=== PATIENT | male | born 1955 | race Caucasian/White ===

== ENCOUNTER 2020-08-12 11:43 | Outpatient (REF) | payer MEDICARE, SELFPAY ==
[2020-08-12 13:34] LABS: Alanine Aminotransferase 24 U/L (0-40); Albumin Level 4.3 g/dL (3.5-5.0); Alkaline Phosphatase 140 U/L (39-117); Anion Gap 17 (12-20); Aspartate Amino Transferase 21 U/L (5-37); Bilirubin Total 0.7 mg/dL (0.0-1.0); Blood Urea Nitrogen 18 mg/dL (9-16); Carbon Dioxide 19 mmol/L (22-29); Chloride 103 mmol/L (96-108); Estimated Glomerular Filt Rate > 60; Glucose Random 340 mg/dL (60-115); Potassium 4.8 mmol/l (3.3-5.1); Sodium 134 mmol/L (135-145); Total Protein 6.6 g/dL (6.5-8.0)
== END 2020-08-12 11:44 | disposition home or self-care (01) ==
LOC: HO.MANLR 11:43
PROVIDERS: PCP Physician Assistant; Visit Provider Physician Assistant
DX: I10 Essential (primary) hypertension (principal)
CPT/HCPCS: 80053

== ENCOUNTER 2020-12-26 11:01 | Outpatient (REF) | payer MEDICARE, SELFPAY ==
[2020-12-26 13:04] LABS: Estimated Average Glucose 189 mg/dL; Hemoglobin A1c % 8.2 %
[2020-12-26 13:54] LABS: Alanine Aminotransferase 34 U/L (0-40); Albumin Level 4.2 g/dL (3.5-5.0); Alkaline Phosphatase 135 U/L (39-117); Anion Gap 13 (12-20); Aspartate Amino Transferase 26 U/L (5-37); Bilirubin Total 0.7 mg/dL (0.0-1.0); Blood Urea Nitrogen 17 mg/dL (9-16); Calcium 9.2 mg/dL (8.4-10.2); Carbon Dioxide 24 mmol/L (22-29); Chloride 106 mmol/L (96-108); Estimated Glomerular Filt Rate > 60; Glucose Random 195 mg/dL (60-115); Potassium 4.6 mmol/L (3.3-5.1); Sodium 138 mmol/L (135-145); Total Protein 6.7 g/dL (6.5-8.0)
== END 2020-12-26 11:02 | disposition home or self-care (01) ==
LOC: HO.MANLR 11:01
PROVIDERS: PCP Internal Medicine; Visit Provider Internal Medicine
DX: I10 Essential (primary) hypertension (principal)
CPT/HCPCS: 36415; 80053; 83036

== ENCOUNTER 2021-02-03 09:29 | Outpatient (REF) | payer MEDICARE, SELFPAY ==
[2021-02-03 11:41] LABS: Estimated Average Glucose 186 mg/dL; Hemoglobin A1c % 8.1 %
[2021-02-03 11:55] LABS: Alanine Aminotransferase 25 U/L (0-40); Albumin Level 4.1 g/dL (3.5-5.0); Alkaline Phosphatase 125 U/L (39-117); Anion Gap 11 (12-20); Aspartate Amino Transferase 20 U/L (5-37); Bilirubin Total 0.5 mg/dL (0.0-1.0); Blood Urea Nitrogen 17 mg/dL (9-16); Carbon Dioxide 25 mmol/L (22-29); Chloride 107 mmol/L (96-108); Estimated Glomerular Filt Rate > 60; Glucose Fasting 185 mg/dL (60-99); Potassium 4.5 mmol/L (3.3-5.1); Sodium 138 mmol/L (135-145); Total Protein 6.6 g/dL (6.5-8.0)
== END 2021-02-03 09:30 | disposition home or self-care (01) ==
LOC: HO.MANLR 09:29
PROVIDERS: PCP Internal Medicine; Visit Provider Physician Assistant
DX: E10.9 Type 1 diabetes mellitus without complications (principal); I10 Essential (primary) hypertension
CPT/HCPCS: 36415; 80053; 83036

== ENCOUNTER 2021-05-06 08:47 | Outpatient (REF) | payer MEDICARE, SELFPAY ==
[2021-05-06 11:14] LABS: Estimated Average Glucose 180 mg/dL; Hemoglobin A1c % 7.9 %
[2021-05-06 11:29] LABS: Alanine Aminotransferase 25 U/L (0-40); Alkaline Phosphatase 123 U/L (39-117); Anion Gap 15 (12-20); Aspartate Amino Transferase 22 U/L (5-37); Blood Urea Nitrogen 20 mg/dL (9-16); Calcium 9.5 mg/dL (8.4-10.2); Carbon Dioxide 20 mmol/L (22-29); Chloride 108 mmol/L (96-108); Cholesterol 174 mg/dL; Estimated Glomerular Filt Rate > 60; Glucose Fasting 243 mg/dL (60-99); HDL Cholesterol 68 mg/dL; LDL Cholesterol Calculated 97 mg/dl; Potassium 4.5 mmol/L (3.3-5.1); Sodium 138 mmol/L (135-145); Total Protein 6.4 g/dL (6.5-8.0); Triglycerides 49 mg/dL
[2021-05-06 11:32] LABS: Creatinine Urine 138.34 mg/dL; Microalbum/Creatinine Ratio Ur 14.4 ug/mg cr
== END 2021-05-06 08:48 | disposition home or self-care (01) ==
LOC: HO.MANLDS 08:47
PROVIDERS: PCP Internal Medicine; Visit Provider Physician Assistant
DX: E11.9 Type 2 diabetes mellitus without complications (principal)
CPT/HCPCS: 36415; 80053; 80061; 82043; 83036

== ENCOUNTER 2021-12-01 11:51 | Outpatient (REF) | payer MEDICARE, SELFPAY ==
[2021-12-01 13:44] LABS: Estimated Average Glucose 206 mg/dL; Hemoglobin A1c % 8.8 %
== END 2021-12-01 11:52 | disposition home or self-care (01) ==
LOC: HO.MANLDS 11:51
PROVIDERS: PCP Physician Assistant; Visit Provider Physician Assistant
DX: Z00.00 Encounter for general adult medical examination without abnormal findings (principal)
CPT/HCPCS: 36415; 83036

== ENCOUNTER 2022-03-17 12:25 | Outpatient (REF) | payer MEDICARE, SELFPAY ==
[2022-03-18 07:47] LABS: Estimated Average Glucose 197 mg/dL; Hemoglobin A1c % 8.5 %
== END 2022-03-17 12:26 | disposition home or self-care (01) ==
LOC: HO.MANLDS 12:25
PROVIDERS: PCP Internal Medicine; Visit Provider Physician Assistant
DX: Z00.00 Encounter for general adult medical examination without abnormal findings (principal)
CPT/HCPCS: 36415; 83036

== ENCOUNTER 2022-05-17 08:24 | Outpatient (REF) | payer MEDICARE, SELFPAY ==
[2022-05-17 11:35] LABS: Cholesterol 173 mg/dL; HDL Cholesterol 67 mg/dL; LDL Cholesterol Calculated 96 mg/dl; Triglycerides 52 mg/dL
[2022-05-17 11:49] LABS: Creatinine Urine 214.77 mg/dL
== END 2022-05-17 08:25 | disposition home or self-care (01) ==
LOC: HO.MANLDS 08:24
PROVIDERS: Visit Provider Physician Assistant
DX: E11.9 Type 2 diabetes mellitus without complications (principal)
CPT/HCPCS: 36415; 80061; 82043

== ENCOUNTER 2022-10-01 08:39 | Outpatient (REF) | payer MEDICARE, SELFPAY ==
[2022-10-01 12:40] LABS: Alanine Aminotransferase 24 U/L (0-40); Alkaline Phosphatase 131 U/L (39-117); Aspartate Amino Transferase 21 U/L (5-37); Bilirubin Total 0.8 mg/dL (0.0-1.0); Blood Urea Nitrogen 14 mg/dL (9-16); Calcium 9.2 mg/dL (8.4-10.2); Cholesterol 172 mg/dL; Estimated Glomerular Filt Rate > 60; Glucose Random 231 mg/dL (60-115); HDL Cholesterol 75 mg/dL; LDL Cholesterol Calculated 90 mg/dl; Total Protein 6.2 g/dL (6.5-8.0); Triglycerides 37 mg/dL
[2022-10-01 12:49] LABS: Estimated Average Glucose 197 mg/dL; Hemoglobin A1c % 8.5 %
[2022-10-01 13:37] LABS: Anion Gap 14 (12-20); Carbon Dioxide 25 mmol/L (22-29); Chloride 106 mmol/L (96-108); Potassium 4.6 mmol/L (3.3-5.1); Sodium 140 mmol/L (135-145)
== END 2022-10-01 08:40 | disposition home or self-care (01) ==
LOC: HO.MANLDS 08:39
PROVIDERS: Visit Provider Internal Medicine
DX: E10.9 Type 1 diabetes mellitus without complications (principal)
CPT/HCPCS: 36415; 80053; 80061; 83036

== ENCOUNTER 2023-02-01 11:51 | Outpatient (REF) | payer MEDICARE, SELFPAY ==
[2023-02-01 13:10] LABS: MANUAL DIFF FLAG NO
[2023-02-01 13:33] LABS: Basophils Percent Auto 0.4 % (0-2); Eosinophils Absolute Auto 0.1 X10*3/uL (0.0-0.4); Eosinophils Percent Auto 1.1 % (0-4); Hemoglobin 14.2 g/dl (14.0-18.0); Imm Gran Abs Auto 0.03 X10*3/uL (0.00-0.03); Imm Gran Pct Auto 0.3 % (0.0-0.4); Lymphocytes Absolute Auto 1.5 X10*3/uL (1.2-4.9); Lymphocytes Percent Auto 14.7 % (20-40); Mean Corpuscular HGB Conc 33.8 g/dl (31.0-36.0); Mean Corpuscular Hemoglobin 29.2 pg (27.0-33.0); Mean Corpuscular Volume 86.2 fL (80.0-98.0); Mean Platelet Volume 11.2 fL (9.4-12.4); Monocytes Absolute Auto 0.9 X10*3/uL (0.1-1.2); Monocytes Percent Auto 8.4 % (2-11); Neutrophils Absolute Auto 7.9 x10*3/uL (2.0-8.3); Neutrophils Percent Auto 75.1 % (45-73); Platelet Count 224 X10*3/uL (160-400); Red Blood Count 4.87 X10*6/uL (4.60-5.80); Red Cell Distribution Width 12.9 % (11.0-16.0); White Blood Count 10.5 X10*3/uL (4.8-10.8)
[2023-02-01 13:50] LABS: Estimated Average Glucose 186 mg/dL; Hemoglobin A1c % 8.1 %
[2023-02-01 14:36] LABS: Prostate Specific Antigen 5.43 ng/mL (<0.05-4.0)
[2023-02-01 14:45] LABS: Alanine Aminotransferase 20 U/L (0-40); Alkaline Phosphatase 142 U/L (39-117); Anion Gap 14 (12-20); Aspartate Amino Transferase 20 U/L (5-37); Bilirubin Total 0.8 mg/dL (0.0-1.0); Blood Urea Nitrogen 19 mg/dL (9-16); Calcium 9.3 mg/dL (8.4-10.2); Carbon Dioxide 22 mmol/L (22-29); Chloride 104 mmol/L (96-108); Cholesterol 184 mg/dL; Estimated Glomerular Filt Rate > 60; Glucose Random 356 mg/dL (60-115); HDL Cholesterol 75 mg/dL; LDL Cholesterol Calculated 98 mg/dl; Potassium 4.7 mmol/L (3.3-5.1); Sodium 135 mmol/L (135-145); Total Protein 6.4 g/dL (6.5-8.0); Triglycerides 56 mg/dL
== END 2023-02-01 11:52 | disposition home or self-care (01) ==
LOC: HO.MANLDS 11:51
PROVIDERS: Visit Provider Physician Assistant
DX: Z00.00 Encounter for general adult medical examination without abnormal findings (principal); Z12.5 Encounter for screening for malignant neoplasm of prostate; E10.9 Type 1 diabetes mellitus without complications; I10 Essential (primary) hypertension
CPT/HCPCS: 36415; 80053; 80061; 83036; 84153; 85025

== ENCOUNTER 2023-05-17 10:03 | Outpatient (REF) | payer MEDICARE, SELFPAY ==
[2023-05-17 14:19] LABS: Estimated Average Glucose 189 mg/dL; Hemoglobin A1c % 8.2 %
[2023-05-17 14:52] LABS: Alanine Aminotransferase 21 U/L (0-40); Albumin Level 3.9 g/dL (3.5-5.0); Alkaline Phosphatase 109 U/L (39-117); Anion Gap 12 (12-20); Aspartate Amino Transferase 22 U/L (5-37); Bilirubin Total 0.7 mg/dL (0.0-1.0); Blood Urea Nitrogen 14 mg/dL (9-16); Calcium 9.4 mg/dL (8.4-10.2); Carbon Dioxide 24 mmol/L (22-29); Chloride 108 mmol/L (96-108); Cholesterol 175 mg/dL; Estimated Glomerular Filt Rate > 60; Glucose Random 215 mg/dL (60-115); HDL Cholesterol 71 mg/dL; LDL Cholesterol Calculated 93 mg/dl; Potassium 4.8 mmol/L (3.3-5.1); Sodium 139 mmol/L (135-145); Total Protein 6.5 g/dL (6.5-8.0); Triglycerides 57 mg/dL
== END 2023-05-17 10:04 | disposition home or self-care (01) ==
LOC: HO.MANLDS 10:03
PROVIDERS: Visit Provider Internal Medicine
DX: E10.9 Type 1 diabetes mellitus without complications (principal)
CPT/HCPCS: 36415; 80053; 80061; 83036

== ENCOUNTER 2023-08-29 08:46 | Outpatient (REF) | payer MEDICARE, SELFPAY ==
[2023-08-29 13:30] LABS: Estimated Average Glucose 189 mg/dL; Hemoglobin A1c % 8.2 % (<6.0)
[2023-08-29 13:44] LABS: Alanine Aminotransferase 24 U/L (0-40); Albumin Level 3.9 g/dL (3.5-5.0); Alkaline Phosphatase 117 U/L (39-117); Anion Gap 15 (12-20); Aspartate Amino Transferase 24 U/L (5-37); Bilirubin Total 0.6 mg/dL (0.0-1.0); Blood Urea Nitrogen 11 mg/dL (9-16); Calcium 9.4 mg/dL (8.4-10.2); Carbon Dioxide 25 mmol/L (22-29); Chloride 106 mmol/L (96-108); Cholesterol 181 mg/dL (<200); Estimated Glomerular Filt Rate > 60; Glucose Random 131 mg/dL (60-115); HDL Cholesterol 76 mg/dL (>40); LDL Cholesterol Calculated 94 mg/dL (<100); Potassium 4.5 mmol/L (3.3-5.1); Sodium 141 mmol/L (135-145); Total Protein 6.6 g/dL (6.5-8.0); Triglycerides 57 mg/dL (<150)
== END 2023-08-29 08:47 | disposition home or self-care (01) ==
LOC: HO.MANLDS 08:46
PROVIDERS: Visit Provider Internal Medicine
DX: E10.9 Type 1 diabetes mellitus without complications (principal)
CPT/HCPCS: 36415; 80053; 80061; 83036

== ENCOUNTER 2023-11-23 09:46 | Outpatient (REF) | payer MEDICARE, SELFPAY ==
[2023-11-23 13:00] LABS: Estimated Average Glucose 183 mg/dL
== END 2023-11-23 09:47 | disposition home or self-care (01) ==
LOC: HO.MANLDS 09:46
PROVIDERS: Visit Provider Internal Medicine
DX: E10.9 Type 1 diabetes mellitus without complications (principal)
CPT/HCPCS: 36415; 83036

== ENCOUNTER 2025-02-04 09:40 | Outpatient (REF) | payer MEDICARE, SELFPAY ==
--- OUTSIDE RECORDS SUMMARY | 2025-02-04 11:03 | XMS_ITS | Continuity of Care Document ---
Author Organization [facility] [address] [place] [address] Phone [phone] Care Team Providers Care Occ Med Physician Name Role Phone ALISTAIR Corona Care Team Information Linux Devops Engineer [phone] Sebastian Dunbar M.D. Care Team Information Linux Devops Engineer [phone] Problems Active Problems Provider Date Type 1 diabetes mellitus Aditya Shore M.D. Onset: 05/11/2023 Social History Type Date Description Comments Sex Unknown Tobacco Use Start: Unknown Never Smoked Cigarettes Smoking Status Reviewed: 05/11/23 Never Smoked Cigaret chantell ETOH Use Occasionally consumes alcoho l Allergies and adverse reactions Description No Known Drug Allergies Medications Active Medications SIG Qnty Indications Ordering Provider Date [id number]/ML Solution Inject 30 Units Under The Skin Daily And 10 Units Per Meal as Needed Use Up To 1 ALISTAIR Corona Atorvastatin Htytyag43cy Tablets Take 1 Tablet By Mouth Every Day ALISTAIR Corona [id number] Tablets Take 1 Tablet By Mouth Every Day ALISTAIR Corona Vital Signs Date Vital Result Comment 11/28/2024 2:42pm BP Systolic 120 mmHg BP Diastolic 80 mmHg Heart Rate 72 /min Height 71 inches 5'11 Weight 239.00 lb BMI (Body Mass Index) 33.3 kg/m2 Results Test Acquired Date Facility Test Result H/L Range Note Glucose Fingerstick 11/28/2024 Inhouse Glucose Fingerstick 186 Hemoglobin A1c 11/28/2024 Inhouse Hemoglobin A1c 7.5% Hemoglobin A1c 08/28/2024 Inhouse Hemoglobin A1c 7.6% Glucose Fingerstick 08/28/2024 Inhouse Glucose Fingerstick 147 Hemoglobin A1c 05/16/2024 Inhouse Hemoglobin A1c 7.5% Glucose Fingerstick 05/16/2024 Inhouse Glucose Fingerstick 128 Hemoglobin A1c 02/09/2024 Inhouse Hemoglobin A1c 7.1% Glucose Fingerstick 02/09/2024 Inhouse Glucose Fingerstick 238 Hemoglobin A1c 11/07/2023 Inhouse Hemoglobin A1c 8.1% Glucose Fingerstick 11/07/2023 Inhouse Glucose Fingerstick 147 Glucose 10/07/2023 [facility] Glucose 203 mg/dL High (70-99) Gad65 Autoantibodies 10/07/2023 [facility] Gad65 Autoantibodies <5.0 1 C-Peptide 10/07/2023 [facility] C-Peptide <0.1 Low 2 Glucose 08/09/2023 [facility] Glucose <pending> C-Peptide 08/09/2023 [facility] C-Peptide <pending> Gad65 Autoantibodies 08/09/2023 [facility] Gad65 Autoantibodies <pending> Hemoglobin A1c 08/03/2023 Inhouse Hemoglobin A1c 9.4% Glucose Fingerstick 08/03/2023 Inhouse Glucose Fingerstick 333 Hemoglobin A1c 05/11/2023 Inhouse Hemoglobin A1c 8.7% Glucose Fingerstick 05/11/2023 Inhouse Glucose Fingerstick 193 1 Reference range: 0.0 to 5.0 Unit: U/mL Test performed at [address] [address] 2 Reference range: 1.1 to 4.4 Unit: ng/mL (NOTE) C-Peptide reference interval is for fasting patients. Test performed by [facility], [address] [place] [id number] Procedures Date Code Description Status 11/28/2024 12814 Glucose Monitoring Interpeta tion And Report Completed 08/28/2024 86391 Glucose Monitoring Interpeta tion And Report Completed 05/16/2024 25287 Glucose Monitoring Interpeta tion And Report Completed 02/09/2024 96777 Glucose Monitoring Interpeta tion And Report Completed 11/07/2023 71973 Glucose Monitoring Interpeta tion And Report Completed Medical Devices Description No Information Available Encounters Type Date Location Provider Dx Diagnosis Office Visit 11/28/2024 2:45p Main Office Aditya Shore M.D. E10.9 Type 1 diabetes mellitus without complications Assessments Date Code Description Provider 11/28/2024 E10.9 Type 1 diabetes mellitus without complications Aditya Shore M.D. Plan of Treatment Future Appointment(s):* 04/09/2025 2:30 pm - Aditya Shore M.D. 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
--- OUTSIDE RECORDS SUMMARY | 2025-02-04 11:03 | XMS_ITS | Continuity of Care Document ---
Author Organization [facility], [facility] Address [address] [place] [address] [place] [address] Assessment No assessment recorded. Plan of Treatment Reminders Order Date Submit Date Provider Last Modified By Organization Details Last Modified Time Details Appointments FOLLOW UP 2024 09:15A ALISTAIR GARG Not available Not available Not available FOLLOW UP 2024 09:30A ALISTAIR GARG Not available Not available Not available Lab PSA, serum or plasma 2024 025 [facility], [address] [place] [address], [id number], 02/04/2025 09:25:00 hemoglobi n A1c, QN, blood 2024 025 [facility], [address] [place] [address], [id number], 02/04/2025 09:25:00 CMP, serum or plasma 2024 025 [facility], [address] [place] [address], [id number], 02/04/2025 09:25:00 CBC w/ auto diff 2024 025 [facility], [address] [place] [address], [id number], 02/04/2025 09:25:00 lipid panel, blood 2024 025 [facility], [address] [place] [address], [place], [id number], 02/04/2025 09:25:00 Referral None recorded. Procedures None recorded. Surgeries None recorded. Imaging None recorded. Medication Orders None recorded. Patient TargetsNo targets recorded. Patient InstructionsNo instructions recorded. Reason for Referral None Reported. Problems Name Problem SNOMED Code Status Onset Date Resolution Date Notes Provider Name and Address Organization Details Recorded Time COVID-19 423083750 Active 2020 1 Not Available [facility] 3 05:15:08 Nasal congestio n 62259838 Active 2021 Not Available [facility] 3 05:15:08 Overweigh t 590176042 Active 2022 ALISTAIR CHRISTINE [address] [place], [address], [facility] 3 13:47:10 Essential hypertens ion 98326252 Active 2022 ALISTAIR CHRISTINE [address] [place], [address], [facility] 3 13:48:01 Acute bronchiti s 47050503 Active 2023 ALISTAIR CHRISTINE [address] [place], [address], [facility] 4 11:16:36 Hyperchol esterolem ia 85505687 Active 2017 Not Available [facility] 3 05:15:08 Type 1 diabetes mellitus 53365188 Active 2017 Not Available [facility] 3 05:15:08 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 Medical Equipment None Reported. Allergies No known drug allergies Medications Name Sig Start Date Stop Date Status Note LastModified by Organization Details LastModified Time Prescriptio n - Prior Authorizati on Request active Not Available Not Available N ot Available amoxicillin 500 mg capsule Take 1 capsule 3 times a day by oral route for 7 days. 12/21 completed Not Available Not Available Not Available atorvastati n 10 mg tablet TAKE 1 TABLET BY MOUTH EVERY DAY active Not Available Not Available No t Available azithromyci n 250 mg tablet TAKE 2 TABLETS (500 MG) BY ORAL ROUTE ONCE DAILY FOR 1 DAY THEN 1 TABLET (250 MG) BY ORAL ROUTE ONCE DAILY FOR 4 DAYS 02/04 completed Not Available Not Available Not Available benzonatate 200 mg capsule Take 1 capsule 3 times a day by oral route as needed for 14 days. 02/04 completed Not Available Not Available Not Available sulfamethox azole 800 mg-trimetho prim 160 mg tablet TAKE 1 TABLET BY MOUTH TWICE DAILY 05/17 completed Not Available Not Available Not Available sildenafil 100 mg tablet TAKE 1/2 TABLET BY MOUTH NEEDED ON EMPTY STOMACH 30 MINUTES PRIOR TO INTERCOUR SE MAY INCREASE TO FULL TABLET active Not Available Not Available No t Available tamsulosin 0.4 mg capsule take 1 capsule by mouth once daily 08/12 completed Not Available Not Available Not Available Humalog U-100 Insulin 100 unit/mL subcutaneou s solution inject 30 units subcutane ously once daily AND 10 UNITS PER MEAL NEEDED, USE UP TO 135 UNITS PER DAY 12/21 completed Not Available Not Available Not Available lisinopril 10 mg tablet take 1 tablet by mouth once daily active Not Available Not Available No t Available bisacodyl 5 mg tablet,lacey yed release TAKE 4 TABLETS BY MOUTH ONCE DIRECTED 05/17 completed Not Available Not Available Not Available Novolog U-100 Insulin aspart 100 unit/mL subcutaneou s solution MAX 135 units per day- 30 units daily w/ additiona l 10 units minimum per meal AND according to sliding scale. active Not Available Not Available No t Available doxycycline hyclate 100 mg tablet TK 1 T PO BID FOR 7 DAYS 01/02 completed Not Available Not Available Not Available Novolog FlexPen U-100 Insulin aspart 100 unit/mL (3 mL) subcutaneou s INJECT 30 UNITS SUBCUTANE OUSLY ONCE DAILY AND 10 UNITS PER MEAL NEEDED, USE UP TO 135 UNITS PER DAY 06/19 completed Not Available Not Available Not Available BD Insulin Syringe Micro-Fine 1 mL 28 gauge x 1/2 USE DIRECTED active Not Available Not Available No t Available GaviLyte-G 236 gram-22.74 gram-6.74 gram-5.86 gram oral solution MIX AND DRINK DIRECTED 05/17 completed Not Available Not Available Not Available ID NOW COVID-19 Test Kit TEST DIRECTED 01/02 completed Not Available Not Available Not Available Afluria Qd (36 mos up)(PF)60 mcg (15 mcg x4)/0.5 mL IM syringe ADM 0.5ML IM UTD 01/02 completed Not Available Not Available Not Available Vitals Date Recorded Body height Body mass index (BMI) Body weight Heart rate Oxygen saturation Oxygen saturation in Arterial blood by Pulse oximetry Systolic blood pressure Diastolic blood pressure Provider Name and Address Organization Details Last Updated DateTime 5 179.07 cm 32.2 kg/m2 852193. 26 g 76 /min 99 % 99 % 120 mm[Hg] 80 mm[Hg] Eleanor Alvarado [facility] 5 09:18:26 Social History Question Answer Notes LastModified by Organizat ion Details LastModified Time Tobacco Smoking Status Never Smoker Not Available [facility] 09/02/2020 03:36:24 What Was The Date Of Your Most Recent Tobacco Screening? 02/04/2025 [email or web address] Information not available 02/04/2025 Do You Or Have You Ever Used Any Other Forms Of Tobacco Or Nicotine? No [email or web address] Information not available 10/15/2024 Sex: Unknown Functional Status None recorded. Mental Status None recorded. Family History Nothing Reported. Medical History No medical history recorded. Immunizations Vaccine Type Date Status Note Provider Nam e and Address Organization Details Recorded Time COVID-19, mRNA, LNP-S, PF, 100 mcg/0.5mL dose or 50 mcg/0.25mL dose 1 completed Not Available [facility] 09/07/2023 05:15:08 Influenza, split virus, quadrivalent, preservative 8 completed Not Available [facility] 09/07/2023 05:15:08 Tdap 8 completed Not Available [facility] 09/07/2023 05:15:08 Influenza, split virus, quadrivalent, preservative 9 completed Not Available [facility] 09/07/2023 05:15:08 Influenza, split virus, quadrivalent, preservative 0 completed Not Available [facility] 09/07/2023 05:15:08 COVID-19, mRNA, LNP-S, PF, 100 mcg/0.5mL dose or 50 mcg/0.25mL dose 1 completed Not Available [facility] 09/07/2023 05:15:08 Past Encounters Encounter ID Performer Location Encounter Start Date Encounter Closed Date Diagnosis/Indication Diagnosis SNOMED-CT Code Diagnosis ICD10 Code Diagnosis Note [id number] ALISTAIR CHRISTINE [facility] [address] [facility],[place] [address] 02/04/2025 09:12:45 02/04/2025 09:39:41 Essential hypertension 44907847 I10 stable, excellent control Hypercholesterolemia 136 43035 E78.2 stable Type 1 delmy betes mellitus 18766843 E10.9 needs blood work Screening for malignant neoplasm of prostate 446410018 Z12.5 needs f/u recheck Depression screening 171 082995 Z13.31 negative Health Concerns Section Related Observation LastModified by Organization Detai ls LastModified Time None Recorded Concern Status LastModified by Organization Details LastModified Time None Recorded Payers Encounter Date Sequence Insurance Name Policy Number Policy Fan Covered Member ID Fan Member ID Guarantor Name 02/04/2025 1 [place] [employer] Bj Banks [id number] Bj Banks 02/04/2025 2 [place] [id number] Bj Banks [id number] Bj Banks Notes Date Note Type Note Provider Name a nd Address Organization Details Recorded Time 02/04/2025 text/html medication check /3 mos f/u HTN: today in the office the patient BP is 120/80 L arm sitting the patient is doing well on the BP medication with no side effects and no adjustment of their medications needed today at the appointment well-controlled on medication denies chest pain, sob, ankle swelling, orthopnea, palpitations T1DM: patient still using pump, working well for himnumber have been around normal for him 140-160's usuallyhave adjusted his insulin dosing and working on being more cognizant of his diet screening prostate: has been stable, no symptoms depression screening: The patient denies little pleasure in activities they find enjoyable, feeling depressed, difficulties sleeping, feeling tired or having little energy, change in appetite, feeling guilty, overwhelmed or unmotivated. The patient denies suicidal ideation, thoughts of hurting themselves or others. Their mood is appropriate, they show good judgement and clear understanding of the conversation. They are orientated to time, place and person. They are not expressing any concerning thoughts or actions that would need further investigation and treatment for mental health. ALISTAIR CHRISTINE [address] [facility], [place], [address], [facility] 02/04/2025 09:37:34
--- OUTSIDE RECORDS SUMMARY | 2025-02-04 11:04 | XMS_ITS | Data Portability ---
Author Organization [facility], Home Service Address [address] [place] [address] Assessment Encounter Date Assessment Date Assessment LastModified by Organization Details LastModified Time 11/28/2023 11/28/2023 Patient agreed and verbally consents to this audio and video Telehealth appt via a secure platform [email or web address] Not available 11/28/2023 09:40:45 Plan of Treatment Reminders Order Date Submit Date Provider Last Modified By Organization Details Last Modified Time Details Appointments FOLLOW UP 15 2024 09:15A M ALISTAIR CHRISTINE Not available Not available Not available FOLLOW UP 15 2024 09:30A M ALISTAIR CHRISTINE Not available Not available Not available Lab PSA, serum or plasma 2024 025 [facility], [address] [place] [address], [id number], 02/04/2025 09:25:00 hemoglobi n A1c, QN, blood 2024 025 [facility], [address] [place] [address], [id number], 02/04/2025 09:25:00 CMP, serum or plasma 2024 025 [facility], [address] [place] [address], [id number], 02/04/2025 09:25:00 CBC w/ auto diff 2024 025 [facility], [address] [place] [address], [id number], 02/04/2025 09:25:00 lipid panel, blood 2024 025 [facility], [address] [place] [address], [id number], 02/04/2025 09:25:00 CMP, serum or plasma 2023 024 [facility], [place], [address], 10/15/2024 13:54:38 CBC w/ auto diff 2023 024 [facility], [place], [address], 10/15/2024 13:54:38 lipid panel, blood 2023 024 [facility], [place], [address], 10/15/2024 13:54:38 hemoglobi n A1c, QN, blood 2023 024 [facility], [place], [address], 10/15/2024 13:54:39 CMP, serum or plasma 2023 024 [facility], [address] [place] [address], [address], 02/27/2024 14:23:13 hemoglobi n A1c, QN, blood 2023 024 [facility], [address] [place] [address], [id number], 02/27/2024 14:23:13 CBC w/ auto diff 2023 024 [facility], [address] [place] [address], [id number], 02/27/2024 14:23:13 lipid panel, blood 2023 024 [facility], [address] [place] [address], [address], 02/27/2024 14:23:14 Referral None recorded. Procedures None recorded. Surgeries None recorded. Imaging None recorded. Medication Orders Novolog U-100 Insulin aspart 100 unit/mL subcutane ous solution 2023 024 [id number], [address] ([employer]) [facility], [place], [address], 02/27/2024 14:25:32 lisinopri l 10 mg tablet 2023 024 [facility], [address] ([employer]) [place], [address], 02/27/2024 14:41:32 atorvasta tin 10 mg tablet 2023 024 [facility], [address] ([employer]) [facility], [place], [address], 02/27/2024 14:41:34 Novolog U-100 Insulin aspart 100 unit/mL subcutane ous solution 2023 024 [facility] Not available 11/28/2023 09:49:57 Patient TargetsNo targets recorded. Patient Instructions Encounter Date Encounter Id Patient Instructions Last Modified By Organization Details Last Modified Time 10/10/2023 [id number] starting a weigh t loss plan: care instructions [email or web address] Not available 10/10/2023 13:47:29 advance care planning: care instructions [email or web address] Not available 10/10/2023 13:44:02 10/15/2024 [id number] advance care planning: care instructions [email or web address] Not available 10/15/2024 13:54:25 Reason for Referral None Reported. Results Created Date Observation Date Name Description Value Unit Range Abnormal Flag Note LastModifiedBy Organization Detail LastModifiedTime Result Notes None recorded. Problems Name Problem SNOMED Code Status Onset Date Resolution Date Notes Provider Name and Address Organization Details Recorded Time COVID-19 795731377 Active 2020 1 Not Available [facility] 3 05:15:08 Nasal congestio n 60879556 Active 2021 Not Available [facility] 3 05:15:08 Overweigh t 714602023 Active 2022 ALISTAIR CHRISTINE [address] [place], [address], [facility] 3 13:47:10 Essential hypertens ion 04170828 Active 2022 ALISTAIR CHRISTINE [address] [place], [address], [facility] 3 13:48:01 Acute bronchiti s 61042536 Active 2023 ALISTAIR CHRISTINE [address] [place] [address], [address], [facility] 4 11:16:36 Hyperchol esterolem ia 57578064 Active 2017 Not Available [facility] 3 05:15:08 Type 1 diabetes mellitus 35313687 Active 2017 Not Available Replaced by [facility] 3 05:15:08 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 Medical Equipment None Reported. Allergies No known drug allergies Medications Name Sig Start Date Stop Date Status Note LastModified by Organization Details LastModified Time Prescriptio n - Prior Authorizati on Request active Not Available Not Available N ot Available amoxicillin 500 mg capsule Take 1 capsule 3 times a day by oral route for 7 days. 02/21 /2020 completed Not Available Not Available Not Available [...] Available Not Available Not Available Afluria Qd 2019- (36 mos up)(PF)60 mcg (15 mcg x4)/0.5 mL IM syringe ADM 0.5ML IM UTD 01/02 completed Not Available Not Available Not Available Vitals Date Recorded Body height Body mass index (BMI) Body weight Heart rate Oxygen saturation Oxygen saturation in Arterial blood by Pulse oximetry Systolic blood pressure Diastolic blood pressure Provider Name and Address Organization Details Last Updated DateTime 3 179.07 cm 32.3 kg/m2 362594. 06 g 71 /min 99 % 99 % 135 mm[Hg] 75 mm[Hg] Frida Huff [facility] 3 13:36:43 Date Recorded Body height Body mass index (BMI) Body weight Heart rate Respiratory rate Oxygen saturation Oxygen saturation in Arterial blood by Pulse oximetry Systolic blood pressure Diastolic blood pressure Provider Name and Address Organization Details Last Updated DateTime 4 179.07 cm 33.2 kg/m2 433668. 21 g 74 /min 18 /min 99 % 99 % 126 mm[Hg] 70 mm[Hg] Dalton Weinberg [facility] 4 14:14:53 Date Recorded Body height Body mass index (BMI) Body weight Heart rate Oxygen saturation Oxygen saturation in Arterial blood by Pulse oximetry Systolic blood pressure Diastolic blood pressure Provider Name and Address Organization Details Last Updated DateTime 4 179.07 cm 32.8 kg/m2 855513. 43 g 72 /min 98 % 98 % 130 mm[Hg] 70 mm[Hg] Thao Brizuela [facility] 4 13:36:50 Date Recorded Body height Body mass index (BMI) Body weight Heart rate Oxygen saturation Oxygen saturation in Arterial blood by Pulse oximetry Systolic blood pressure Diastolic blood pressure Provider Name and Address Organization Details Last Updated DateTime 5 179.07 cm 32.2 kg/m2 154497. 26 g 76 /min 99 % 99 % 120 mm[Hg] 80 mm[Hg] Eleanor Parra [facility] 5 09:18:26 Social History Question Answer Notes LastModified by Organizat ion Details LastModified Time Tobacco Smoking Status Never Smoker Not Available Replaced by [facility] 09/02/2020 03:36:24 What Was The Date Of Your Most Recent Tobacco Screening? 02/04/2025 [email or web address] Information not available 02/04/2025 Do You Or Have You Ever Used Any Other Forms Of Tobacco Or Nicotine? No [email or web address] Information not available 10/15/2024 Sex: Unknown Functional Status None recorded. Mental Status None recorded. Family History Nothing Reported. Medical History No medical history recorded. Immunizations Vaccine Type Date Status Note Provider Nam e and Address Organization Details Recorded Time COVID-19, mRNA, LNP-S, PF, 100 mcg/0.5mL dose or 50 mcg/0.25mL dose 1 completed Not Available Replaced by [facility] 09/07/2023 05:15:08 Influenza, split virus, quadrivalent, preservative 8 completed Not Available Replaced by [facility] 09/07/2023 05:15:08 Tdap 8 completed Not Available Replaced by [facility] 09/07/2023 05:15:08 Influenza, split virus, quadrivalent, preservative 9 completed Not Available Replaced by [facility] 09/07/2023 05:15:08 Influenza, split virus, quadrivalent, preservative 0 completed Not Available Replaced by [facility] 09/07/2023 05:15:08 COVID-19, mRNA, LNP-S, PF, 100 mcg/0.5mL dose or 50 mcg/0.25mL dose 1 completed Not Available Replaced by [facility] 09/07/2023 05:15:08 Past Encounters Encounter ID Performer Location Encounter Start Date Encounter Closed Date Diagnosis/Indication Diagnosis SNOMED-CT Code Diagnosis ICD10 Code Diagnosis Note [id number] Radha Myers NP, S [facility] [address] [facility],[place] [address] 03/06/2018 13:59:06 03/06/2018 15:45:05 Active or passive immunization 943127474 Z23 Discussed pneumonia vaccine, pt has had HSV Adult heal th examination 163592058 Z00.00 Hypercholesterolemia 136 59114 E78.00 Nocturia d ue to benign prostatic hypertrophy 1989154467 101 N40.1 Bilateral hearing loss 91461057 H91.93 Type 1 delmy betes mellitus 94511566 E10.9 long discussion re: risks coronary disease to reduce night time snacking, try to eat at work during day walk daily, even for a short period of time prefers paper lab slip, provided to include chol, microalbum in Essential hypertension 49175900 I10 continue lisinopril [id number] Radha Myers NP, S [facility] [address] [facility], [place] [facility] [place] [address] 06/13/2018 11:07:21 06/16/2018 09:29:46 Type 1 diabetes mellitus 37123576 E10.9 Hypercholesterolemia 136 10620 E78.00 reviewed labs Hypertensive disorder 38 193787 I10 stable [id number] Radha Myers NP, [facility] [address] [facility], [employer] [place] [address] 11/06/2018 14:14:15 11/06/2018 16:12:04 Hypercholesterolemia 15093605 E78.00 reviewed labs Hypertensive disorder 38 356817 I10 stable Type 1 delmy betes mellitus 88374169 E10.9 up to date with Dr. Yanez en Dyspnea on exertion 6084 5006 R06.09 Snoring 98247518 R06.83 [id number] Radha Myers NP, [facility] [address] [facility], [employer] [place] [address] 02/19/2019 13:20:06 02/19/2019 14:44:39 Hypertensive disorder 81664918 I10 stable Type 1 delmy betes mellitus 98622321 E10.9 Hypercholesterolemia 136 22193 E78.00 reviewed labs [id number] Sebastian Dunbar DO [facility] [address] [facility], [place] [address] 05/16/2019 13:38:20 05/16/2019 15:06:04 Hypercholesterolemia 04415515 E78.00 Type 1 delmy betes mellitus 71520564 E10.9 -continue monitoring blood glucose levels -control infections -monitor for signs and symptoms of infection -discussed signs and symptoms of hyperglyce franci and hypoglycem ia -discussed different glucose monitoring devices -discussed insulin pumps -discussed management of type I diabetes -discussed diet and weight management Hypertensive disorder 38 047040 I10 -continue with lisinopril 10mg Dental abscess 838646514 K04.7 -diagnosed with tooth abscess at dentist today via xray -scheduled for root canal next week [id number] Sebastian Dunbar DO [facility] [address] [facility],[place] [address] 09/03/2019 11:15:50 09/03/2019 12:14:20 Type 1 diabetes mellitus 97788572 E10.9 -continue monitoring blood glucose levels -control infections -monitor for signs and symptoms of infection -discussed signs and symptoms of hyperglyce franci and hypoglycem ia -discussed different glucose monitoring devices -discussed insulin pumps -discussed management of type I diabetes -discussed diet and weight management Hypertensive disorder 38 142553 I10 -continue with lisinopril 10mg Hypercholesterolemia 136 93068 E78.00 Hepatitis C screening 41 9064350 Z11.59 [id number] Sebastian Dunbar DO [facility] [address] [facility],[place] [address] 12/21/2019 10:16:50 12/21/2019 11:10:23 Hypertensive disorder 91186772 I10 -continue with lisinopril 10mg Type 1 delmy betes mellitus 58929596 E10.9 -continue monitoring blood glucose levels -control infections -monitor for signs and symptoms of infection -discussed signs and symptoms of hyperglyce franci and hypoglycem ia -discussed different glucose monitoring devices -discussed insulin pumps > now using insulin pump, waiting for insurance company to approve the sensor -discussed management of type I diabetes -discussed diet and weight management [id number] Sebastian Dunbar DO [facility] [address] [facility],[place] [address] 04/16/2020 15:49:10 04/16/2020 16:26:17 Hypertensive disorder 02275317 I10 -continue with lisinopril 10mg Type 1 delmy betes mellitus 33905034 E10.9 will try to get the PRX lab testing continuous glucose monitor with out finger sticks -continue monitoring blood glucose levels -control infections -monitor for signs and symptoms of infection -discussed signs and symptoms of hyperglyce franci and hypoglycem ia -discussed different glucose monitoring devices -discussed insulin pumps > now using insulin pump, waiting for insurance company to approve the sensor -discussed management of type I diabetes -discussed diet and weight management Chronic th oracic back pain 1404121712 61825 M54.6 Cough 71970019 R05 no known allergies nonsmoker [id number] ALISTAIR CHRISTINE [facility] [address] [facility] [address],[place] [address] 08/12/2020 10:37:08 08/12/2020 11:37:29 Hypertensive disorder 28049984 I10 BP fine today will continue to monitor Type 1 delmy betes mellitus 75462389 E10.9 working on getting new pump will keep me informed about what he needs [place] bw [id number] ALISTAIR CHRISTINE [facility] [address] [facility] [address],[place] [address] 10/28/2020 08:38:29 10/28/2020 11:24:04 Hypertensive disorder 77511188 I10 BP good per patient Type 1 delmy betes mellitus 80268030 E10.9 A1c is much better new pump is working much better for him [id number] ALISTAIR CHRISTINE [facility] [address] [facility] [address],[place] [address] 01/02/2021 14:07:49 01/02/2021 15:53:44 Type 1 diabetes mellitus 53129781 E10.9 A1c is better 8.2% new pump is working much better for him Hypertensive disorder 38 337658 I10 BP excellent today, no change or interventi on needed at this time [id number] ALISTAIR CHRISTINE [facility] [address] [facility] [address],[place] [address] 04/10/2021 10:26:46 04/10/2021 14:15:09 Diabetes mellitus 92416506 E11.9 will fu with recheck in a few mo the patient A1c, working with his new pump to regulate Hypercholesterolemia 136 52966 E78.2 stable at recheck will fu in another 6 mo Hypertensive disorder 38 308548 I10 BP excellent today, no change or interventi on needed at this time [id number] ALISTAIR CHRISTINE [facility] [address] [facility] [address],[place] [address] 05/06/2021 08:50:28 05/06/2021 09:19:18 Active or passive immunization 585552484 Z23 discussed with patientfrancesd COVID vaccine and joey keith on the pna vaccine Adult heal th examination 520711481 Z00.00 the patient had lab work recentlydi scussed with patient diet and exercise BP excellent [id number] [facility] [address] [facility] [address],[place] [address] 07/22/2021 08:11:37 07/22/2021 11:55:13 Type 1 diabetes mellitus 72792713 E10.9 will be getting the blood work this week Retinopath y due to diabetes mellitus 9636477 E11.3293 stable 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.1 will fu recheck to confirm diagnosisi f correct with discuss work up Kidney stone 35699889 N2 0.0 multiple stones, left kidney fu with urologyinc rease water intake [id number] ALISTAIR CHRISTINE [facility] [address] [facility],[place] [address] 12/04/2021 08:20:36 12/07/2021 11:00:24 Retinopathy due to diabetes mellitus 5550936 E11.3293 stable Benign pro static hyperplasia 370700208 N40.0 stable Hypercholesterolemia 136 88545 E78.2 stable Hypertensive disorder 38 454247 I10 no changes or symptoms suggestive uncontroll ed HTN Type 1 delmy betes mellitus 67184684 E10.9 A1c is up from last checkpatie nt understand s he needs to really focus on his diet Mild memor y disturbance 829955204 R41.3 related to stress levels [id number] ALISTAIR CHRISTINE [facility] [address] [facility] [address],[place] [address] 03/10/2022 09:19:35 03/10/2022 10:54:47 Cough 04497800 R05.1 will monitor symptoms Nasal congestion 1618288 0 R09.81 will monitor symptoms [id number] ALISTAIR CHRISTINE [facility] [address] [facility] [address] [address] 05/17/2022 08:53:10 05/17/2022 09:31:53 Hypertensive disorder 91720503 I10 no changes or symptoms suggestive uncontroll ed HTN Type 1 delmy betes mellitus 72910407 E10.9 A1c is up from last checkpatie nt understand s he needs to really focus on his diet Advance care planning 71 6044720 Z71.89 updated patient Active or passive immunization 113661119 Z23 patient advised he is due to pneu 22/10 & shingles [id number] ALISTAIR CHRISTINE [facility] [address] [facility] [address],[place] [address] 10/01/2022 10:41:31 10/01/2022 11:35:02 Active or passive immunization 985765186 Z23 patient advised he is due to pneu 22/10 & shingles Adult heal th examination 928806927 Z00.00 the patient had lab work recentlydi scussed with patient diet and exercise BP excellent [id number] ALISTAIR CHRISTINE [facility] [address] [facility] [address] [address] 02/02/2023 10:18:32 02/02/2023 13:50:35 Hypercholesterolemia 61114191 E78.2 stable Type 1 delmy betes mellitus 61905080 E10.9 [facility] againmost likely to 30 U AM and 20 U PM to startalso send back to his endo Retinopath y due to diabetes mellitus 9509545 E11.3293 stable [id number] ALISTAIR CHRISTINE [facility] [address] [facility] [address],[place] [address] 05/17/2023 09:20:21 05/17/2023 12:25:29 Hypercholesterolemia 75164822 E78.2 stable Hypertensive disorder 38 401010 I10 no changes or symptoms suggestive uncontroll ed HTNstable at home Type 1 delmy betes mellitus 72286480 E10.9 waiting on new results after today's appt Benign pro static hyperplasia 433963043 N40.0 stableno major changes [id number] ALISTAIR CHRISTINE [facility] [address] [facility] [address],[place] [address] 08/29/2023 08:52:16 08/29/2023 09:55:36 Benign prostatic hyperplasia 293509363 N40.0 stableno major changes Hypercholesterolemia 136 20391 E78.2 stable Hypertensive disorder 38 815357 I10 stable Type 1 delmy betes mellitus 97125301 E10.9 waiting on new results after today's appt [id number] ALISTAIR CHRISTINE [facility] [address] [facility] [address],[place] [address] 10/10/2023 13:31:38 10/10/2023 13:59:13 Adult health examination 618467593 Z00.00 BP is good todayrecen tly had multiple blood draws, A1c is down a few points Overweight 109759617 E66 .3 stablework on diet [id number] ALISTAIR CHRISTINE [facility] [address] [facility] [address],[place] [address] 11/28/2023 09:31:04 11/28/2023 10:08:51 Benign prostatic hyperplasia 559895445 N40.0 stableno major changes Essential hypertension 79393734 I10 stable per patient Hypercholesterolemia 136 76506 E78.2 stable Type 1 delmy betes mellitus 17551734 E10.9 may need an alternativ e to novolog, was told by insurance that they no longer cover NovoLog Retinopath y due to diabetes mellitus 2672295 E11.3293 stable [id number] ALISTAIR CHRISTINE [facility] [address] [facility] [address],[place] [address] 02/27/2024 14:01:29 02/27/2024 16:29:18 Type 1 diabetes mellitus 58722276 E10.9 A1c was 7.1%will switch pharmacy to [facility] given the amount of issues with [facility] Essential hypertension 73914412 I10 stable per patientexc ellent control today in office Hypercholesterolemia 136 25479 E78.2 stable [id number] ALISTAIR CHRISTINE [facility] [address] [facility] [address],[place] [address] 10/15/2024 13:30:31 10/15/2024 14:21:48 Benign prostatic hyperplasia 848793186 N40.0 stableno major changes Type 1 delmy betes mellitus 05368321 E10.9 A1c was 7.4%pump is working good Essential hypertension 29037332 I10 stable Hypercholesterolemia 136 88762 E78.2 stable Adult heal th examination 637239062 Z00.00 BP is good todayrecen tly had multiple blood draws, A1c is down a few points Depression screening 171 973061 Z13.31 negative [id number] ALISTAIR CHRISTINE [facility] [address] [facility] [address],[place]illy [place] [facility] [place] [place] [address] 02/04/2025 09:12:45 02/04/2025 09:39:41 Essential hypertension 12787382 I10 stable, excellent control Hypercholesterolemia 136 06086 E78.2 stable Type 1 delmy betes mellitus 01180368 E10.9 needs blood work Screening for malignant neoplasm of prostate 872035735 Z12.5 needs f/u recheck Depression screening 171 016929 Z13.31 negative Health Concerns Section Related Observation LastModified by Organization Detai ls LastModified Time None Recorded Concern Status LastModified by Organization Details LastModified Time None Recorded Advance Directives Directive None Recorded Payers Encounter Date Sequence Insurance Name Policy Number Policy Fan Covered Member ID Fan Member ID Guarantor Name 10/10/2023 1 [place] [employer] Bj Banks [id number] Bj Jocelyn 10/10/2023 2 [place] [id number] Bj Stevenson [place] [id number] Bj Cabins 11/28/2023 1 [place] Bj Izquierdoon [id number] Bj [place]ins 11/28/2023 2 [place] [id number] Bj Stevenson Jocelyn [id number] Bj Jocelyn 02/27/2024 1 [place] Bj Banks [id number] Bj Jocelyn 02/27/2024 2 [place] [id number] Bj Banks [id number] Bj Banks 10/15/2024 1 [place] [facility] Bj Banks [id number] Bj Banks 10/15/2024 2 [place] (MEDICARE SUPPLEMENT) [id number] Bj Banks [id number] Bj Banks 02/04/2025 1 [place] [facility] Bj Banks [id number] Bj Banks 02/04/2025 2 [place] [id number] Bj Banks [id number] Bj Banks Notes Date Note Type Note Provider Name a mt Address Organization Details Recorded Time 3 text/html Annual WellnessReported bypatient.Diet and Nutrition:healthy diet; discussed vitamin and supplement use; discussed portion control; discussed maintaining calcium balance; discussed diet improvement Fracture Risk:no history of fractures; no recent explained fracture; no sudden unexplained fractures; no previous musculoskeletal injuries Physical Activity:exercises on a regular basis; recent increase in physical activity; good physical condition; discussed weightbearing activities; discussed exercise habits Additional Lifestyle Factors:no tobacco use; drinks alcohol (mild-moderate) Depression Risk:never feels sad, empty, or tearful; no loss of interest in activities; no significant changes in weight; no sleep disturbances or insomnia; no agitation; no loss of energy; no feelings of worthlessness or guilt; no thoughts of suicide; no history of depression; no history of mood disorders Hearing:no loss of hearing Vision:no vision problems the patient reports he got a new insulin pump, having issues with [employer] about payment, did pay out of pocket for it the patient reports he had to do a few blood labs for otywY0l is down from 8.6% to 8.2% doing fineBP is good [facility]ISTAIR CHRISTINE [address] [place] [address], [place], [phone], [facility] 10/10/2023 13:56:46 4 text/html 3 mos f/i The patient is participating in this appointment via telemedicine communication with a phone call/video calling service (Doxy)The patient consents to use of these platforms in place of an in-person appointment due to either sick symptoms the patient is presenting with or current office closure due to COVID exposure in order to keep our office staff and patients safe BPH: stable per patient HTN: stable per patient HLD: stable per recent lab work T1DM: new [employer] system, working with his insurance for the suppliesgot a note from his insurance saying they don't cover novolog anymore, but they kicked off humalog to put him on novolog because they didn't cover that before eitherdid not mention what their formulary preferred alternative is on the letterwill send back to pharmacy for more information or to have them run it again through medicare first and not his supplemental will fu with patienthe is also planning on calling his insurance on his end for more information as well AL[facility]AIR CHRISTINE [address] [place], [address], [facility] 11/28/2023 09:46:32 4 text/html f/u Type 1 diabetes the patient and I have been working with his pharmacy to get his insulin to get throughthey did tell him it was his insurance as well but his insurance said no it's not a problem with them that he can get as much as he wants during a month based on what agreed to switching his pharmacy as well to [facility] for ease of use going forward otherwise he is working with endo with his [employer] for his sensors he is due for his A1c was 7/1% for endoneeds new standing orders filed out again today in the office the patient BP is 126/70 R arm sitting the patient is doing well on the BP medication with no side effects and no adjustment of their medications needed today at the appointment well-controlled on medication denies chest pain, sob, ankle swelling, orthopnea, palpitations ALISTAIR CHRISTINE [address] [facility], [place], [address], [facility] 02/27/2024 14:44:29 4 text/html Annual WellnessReported bypatient.Diet and Nutrition:healthy diet; discussed vitamin and supplement use; discussed portion control; discussed maintaining calcium balance; discussed diet improvement Fracture Risk:no history of fractures; no recent explained fracture; no sudden unexplained fractures; no previous musculoskeletal injuries Physical Activity:exercises on a regular basis; recent increase in physical activity; good physical condition Additional Lifestyle Factors:drinks alcohol (mild-moderate) Depression Risk:never feels sad, empty, or tearful; no loss of interest in activities; no significant changes in weight; no sleep disturbances or insomnia; no agitation; no loss of energy; no feelings of worthlessness or guilt; no thoughts of suicide; no history of depression; no history of mood disorders Hearing:no loss of hearing Vision:no vision problems BPH: level is down from 5.98 to 5.28 which is good T1DM: has the pumpthe patient reports that he has been using the patient is now 7.4% which is excellent progress, considering he was in the 8's for awhile working on the pump and insulin dose [facility]AIR CHRISTINE [address] [place], [address], [facility] 10/15/2024 13:58:42 5 text/html medication check/3 mos f/u HTN: today in the office [...] treatment for mental health. ALISTAIR CHRISTINE [address] [place], [address], [facility] 02/04/2025 09:37:34
[2025-02-04 13:09] LABS: MANUAL DIFF FLAG NO
[2025-02-04 13:16] LABS: Basophils Percent Auto 0.4 % (0-2); Eosinophils Absolute Auto 0.2 X10*3/uL (0.0-0.4); Hematocrit 41.1 % (42.0-52.0); Hemoglobin 14.1 g/dl (14.0-18.0); Imm Gran Abs Auto 0.03 X10*3/uL (0.00-0.03); Imm Gran Pct Auto 0.3 % (0.0-0.4); Lymphocytes Absolute Auto 1.9 X10*3/uL (1.2-4.9); Lymphocytes Percent Auto 20.3 % (20-40); Mean Corpuscular HGB Conc 34.3 g/dl (31.0-36.0); Mean Corpuscular Hemoglobin 29.6 pg (27.0-33.0); Mean Corpuscular Volume 86.3 fL (80.0-98.0); Mean Platelet Volume 11.6 fL (9.4-12.4); Monocytes Absolute Auto 0.8 X10*3/uL (0.1-1.2); Monocytes Percent Auto 8.8 % (2-11); Neutrophils Absolute Auto 6.3 x10*3/uL (2.0-8.3); Neutrophils Percent Auto 68.2 % (45-73); Platelet Count 207 X10*3/uL (160-400); Red Blood Count 4.76 X10*6/uL (4.60-5.80); Red Cell Distribution Width 13.2 % (11.0-16.0); White Blood Count 9.3 X10*3/uL (4.8-10.8)
[2025-02-04 13:34] LABS: Estimated Average Glucose 157 mg/dL; Hemoglobin A1C 200.6912 umol/L; Hemoglobin A1c % 7.1 % (<6.0); Total Hemoglobin (HGBA1C) 3698.4411 umol/L
[2025-02-04 14:17] LABS: Alanine Aminotransferase 15 U/L (0-40); Albumin Level 4.1 g/dL (3.5-5.0); Alkaline Phosphatase 113 U/L (39-117); Anion Gap 9 (12-20); Aspartate Amino Transferase 28 U/L (5-37); Bilirubin Total 0.8 mg/dL (0.0-1.0); Blood Urea Nitrogen 16 mg/dL (9-16); Calcium 9.5 mg/dL (8.4-10.2); Carbon Dioxide 25 mmol/L (22-29); Chloride 110 mmol/L (96-108); Cholesterol 154 mg/dL (<200); Estimated Glomerular Filt Rate > 60; Glucose Random 110 mg/dL (60-115); HDL Cholesterol 66 mg/dL (>40); LDL Cholesterol Calculated 77 mg/dL (<100); Potassium 4.1 mmol/L (3.3-5.1); Sodium 140 mmol/L (135-145); Total Protein 6.6 g/dL (6.5-8.0); Triglycerides 55 mg/dL (<150)
== END 2025-02-04 09:41 | disposition home or self-care (01) ==
LOC: HO.MANLDS 09:40
PROVIDERS: Visit Provider Physician Assistant
DX: E78.2 Mixed hyperlipidemia (principal); E10.9 Type 1 diabetes mellitus without complications
CPT/HCPCS: 36415; 80053; 80061; 83036; 85025